=== PATIENT | female | born 1990 | race Caucasian/White ===

== ENCOUNTER 2017-08-03 15:03 | Emergency (ER) | payer BC ==
[~2017-08-03 15:03] MED LIST: ASCO-201 PO; CEFU500T10 PO; CIPR-344 PO; COLC0.6C3; CYCL10TA29 PO; HYDR-4309 PO; HYDR-6016 PO; LOR5/325 PO; LORA-1456 PO; NAPR500T75 PO; NORG1TAB76 PO; OXYC-870 PO; PRED20TA6 PO; PROM-110 PO; ROBC PO
--- NOTE | 2017-08-03 15:07 | ER Report ---
History and Physical Time Seen By MD: 15:06 HPI/ROS CHIEF COMPLAINT: flank pain HISTORY OF PRESENT ILLNESS: PT started two weeks ago with dysuria and frequency. Was using cranberry juice and AZO over the counter for symptoms. NO fevers but has chills. + nausea Developed r flank pain in last day or so that has gotten increasingly worse. PT went to [facility] and sent to emergency room for further evaluation. Pt has not had any kidney stones. Pt has had kidney infection years ago. PT had a urine and urine done at [facility]. Urine was negative. Urine showed bacteria. REVIEW OF SYSTEMS: Constitutional: No fever, + chills. Eyes: No discharge. ENT: No sore throat. Cardiovascular: No chest pain, no palpitations. Respiratory: No cough, no shortness of breath. Gastrointestinal: + abdominal pain, no vomiting, + nausea Genitourinary: No hematuria, + dysuria, + frequency Musculoskeletal: No back pain. Skin: No rashes. Neurological: No headache. Allergies: Coded Allergies: Sulfa (Sulfonamide Antibiotics) (Verified Allergy, Severe, TONGUES SWELLING., 08/03/17) Home Meds Active Scripts Hydrocodone Bit/Acetaminophen (HYDROCODON-ACETAMINOPHEN 5-325) 1 Each Tablet, 1- 2 EACH PO Q4-6H Y for PAIN, #15 TAB Prov:LUNA BENNETT DO 08/03/17 Ondansetron (ZOFRAN ODT) 4 Mg Tab.rapdis, 4 MG PO Q6-8H Y for NAUSEA, #15 TAB.ALAN Prov:LUNA BENNETT DO 08/03/17 Cefuroxime Axetil (CEFUROXIME) 500 Mg Tablet, 500 MG PO BID, #14 TAB Prov:LUNA BENNETT DO 08/03/17 Discontinued Reported Medications Colchicine (Colchicine) 0.6 Mg Capsule 05/21/17 Discontinued Scripts Hydrocodone Bit/Acetaminophen (HYDROCODON-ACETAMINOPHEN 5-325) 1 Each Tablet, 1 EACH PO Q4H Y for PAIN, #12 TAB 0 Refills Prov:SHENA HUTCHINSON MD 05/21/17 Prednisone (PREDNISONE) 20 Mg Tablet, 20 MG PO DIRECTED, #20 TAB 1 Refill take 3 tablets once a day for 5 days, then 2 tablets once a day for 2 days, then 1 tablet once a day for 2 days, then 1/2 tablet once a day for 2 days. Prov:EVANGELINASHENA Sue CABRERA 05/21/17 Past Medical/Surgical History Pmhx: Behcet ds, uti Pshx: non contribuitory Reviewed Nurses Notes: Yes Old Medical Records Reviewed: Yes Hx Smoking: No Smoking Status: Never Smoker Hx Substance Use Disorder: No Hx Alcohol Use: Yes (occ) Constitutional Vital Sign - Last 24 Hours 08/03/17 08/03/17 08/03/17 08/03/17 15:17 15:18 15:19 15:30 Temp 97.5 Pulse ??? Resp 20 B/P (MAP) 150/113 150/113 (125) 138/107 (117) O2 Delivery Room Air 08/03/17 08/03/17 08/03/17 08/03/17 16:00 16:30 16:35 16:50 Pulse ? B/P (MAP) ???/??? (1665) 140/95 (110) 08/03/17 08/03/17 08/03/17 08/03/17 17:00 17:05 17:20 17:30 Pulse ? B/P (MAP) 133/95 (108) 132/97 (109) 08/03/17 08/03/17 08/03/17 17:47 17:48 17:49 B/P (MAP) 130/103 (112) 137/104 (115) 132/93 (106) Physical Exam General Appearance: The patient is alert, has no immediate need for airway protection and no signs of toxicity. Eyes: Pupils equal and round no pallor or injection, EOMI ENT: no pharyngeal erythema or exudates, Mucous membranes are moist, TM are nl b/l Respiratory: There are no retractions, lungs are clear to auscultation. Cardiovascular: Regular rate and rhythm. pulses are equal and symmetrical Gastrointestinal: Abdomen is soft with rlq abdominal pain, R flank pain, no masses, bowel sounds normal, no guarding, no rigidity or rebound Neurological: Cranial nerves II-XII grossly intact, no sensory or motor loss Skin: Warm and dry, no rashes. Musculoskeletal: Neck is supple non tender, no vertebral tenderness Extremities are nontender, non swollen and have full range of motion. DIFFERENTIAL DIAGNOSIS: After history and physical exam differential diagnosis was considered for appendicitis, kidney stone, pyelo, uti Medical Decision Making Data Points Result Diagram: 08/03/17 1535 08/03/17 1535 Laboratory Hematology Test 08/03/17 15:35 08/03/17 16:40 Red Blood Count 4.91 M/uL (4.17-5.56) Mean Corpuscular Volume 89.1 fL (80.0-96.0) Mean Corpuscular Hemoglobin 30.6 pg (26.0-33.0) Mean Corpuscular Hemoglobin Concent 34.4 g/dL (32.0-36.0) Red Cell Distribution Width 13.1 % (11.5-14.5) Mean Platelet Volume 7.5 fL (7.2-11.1) Neutrophils (%) (Auto) 75.9 % (39.4-72.5) Lymphocytes (%) (Auto) 14.4 % (17.6-49.6) Monocytes (%) (Auto) 7.6 % (4.1-12.4) Eosinophils (%) (Auto) 1.3 % (0.4-6.7) Basophils (%) (Auto) 0.8 % (0.3-1.4) Nucleated RBC Relative Count (auto) 0.1 /100WBC Neutrophils # (Auto) 6.7 K/uL (2.0-7.4) Lymphocytes # (Auto) 1.3 K/uL (1.3-3.6) Monocytes # (Auto) 0.7 K/uL (0.3-1.0) Eosinophils # (Auto) 0.1 K/uL (0.0-0.5) Basophils # (Auto) 0.1 K/uL (0.0-0.1) Nucleated RBC Absolute Count (auto) 0.01 K/uL Sodium Level 136 mmol/L (137-145) Potassium Level 3.9 mmol/L (3.5-5.0) Chloride Level 100 mmol/L (98-107) Carbon Dioxide Level 24 mmol/L (22-31) Blood Urea Nitrogen 7 mg/dl (7-18) Creatinine 0.70 mg/dl (0.52-1.04) Glomerular Filtration Rate Calc > 60.0 Random Glucose 85 mg/dl (75-110) Calcium Level 9.0 mg/dl (8.4-10.2) Urine Color Yellow Urine Clarity Clear Urine pH 6.0 pH (4.8-9.5) Urine Specific [place] 1.011 Urine Protein Negative mg/dL (NEGATIVE) Urine Glucose (UA) Negative mg/dL (NEGATIVE) Urine Ketones Negative mg/dL (NEGATIVE) Urine Blood Moderate (NEGATIVE) Urine Nitrite Negative (NEGATIVE) Urine Bilirubin Negative (NEGATIVE) Urine Urobilinogen Negative mg/dL (0.2-1.9) Urine Leukocyte Esterase Large (NEGATIVE) Urine RBC 6 /HPF (0-2/HPF) Urine WBC 46 /HPF (0-5/HPF) Urine Squamous Epithelial Cells Few /LPF (</=FEW) Urine Bacteria Few /HPF (NONE-FEW) Urine Mucus None /HPF (NONE-FEW) Chemistry Test 08/03/17 15:35 08/03/17 16:40 White Blood Count 8.8 k/uL (4.5-11.0) Red Blood Count 4.91 M/uL (4.17-5.56) Hemoglobin 15.0 g/dL (12.0-16.0) Hematocrit 43.8 % (34.0-47.0) Mean Corpuscular Volume 89.1 fL (80.0-96.0) Mean Corpuscular Hemoglobin 30.6 pg (26.0-33.0) Mean Corpuscular Hemoglobin Concent 34.4 g/dL (32.0-36.0) Red Cell Distribution Width 13.1 % (11.5-14.5) Platelet Count 314 K/uL (150-450) Mean Platelet Volume 7.5 fL (7.2-11.1) Neutrophils (%) (Auto) 75.9 % (39.4-72.5) Lymphocytes (%) (Auto) 14.4 % (17.6-49.6) Monocytes (%) (Auto) 7.6 % (4.1-12.4) Eosinophils (%) (Auto) 1.3 % (0.4-6.7) Basophils (%) (Auto) 0.8 % (0.3-1.4) Nucleated RBC Relative Count (auto) 0.1 /100WBC Neutrophils # (Auto) 6.7 K/uL (2.0-7.4) Lymphocytes # (Auto) 1.3 K/uL (1.3-3.6) Monocytes # (Auto) 0.7 K/uL (0.3-1.0) Eosinophils # (Auto) 0.1 K/uL (0.0-0.5) Basophils # (Auto) 0.1 K/uL (0.0-0.1) Nucleated RBC Absolute Count (auto) 0.01 K/uL Glomerular Filtration Rate Calc > 60.0 Calcium Level 9.0 mg/dl (8.4-10.2) Urine Color Yellow Urine Clarity Clear Urine pH 6.0 pH (4.8-9.5) Urine Specific [place] 1.011 Urine Protein Negative mg/dL (NEGATIVE) Urine Glucose (UA) Negative mg/dL (NEGATIVE) Urine Ketones Negative mg/dL (NEGATIVE) Urine Blood Moderate (NEGATIVE) Urine Nitrite Negative (NEGATIVE) Urine Bilirubin Negative (NEGATIVE) Urine Urobilinogen Negative mg/dL (0.2-1.9) Urine Leukocyte Esterase Large (NEGATIVE) Urine RBC 6 /HPF (0-2/HPF) Urine WBC 46 /HPF (0-5/HPF) Urine Squamous Epithelial Cells Few /LPF (</=FEW) Urine Bacteria Few /HPF (NONE-FEW) Urine Mucus None /HPF (NONE-FEW) Urinalysis Test 08/03/17 16:40 Urine Color Yellow Urine Clarity Clear Urine pH 6.0 pH (4.8-9.5) Urine Specific [place] 1.011 Urine Protein Negative mg/dL (NEGATIVE) Urine Glucose (UA) Negative mg/dL (NEGATIVE) Urine Ketones Negative mg/dL (NEGATIVE) Urine Blood Moderate (NEGATIVE) Urine Nitrite Negative (NEGATIVE) Urine Bilirubin Negative (NEGATIVE) Urine Urobilinogen Negative mg/dL (0.2-1.9) Urine Leukocyte Esterase Large (NEGATIVE) Urine RBC 6 /HPF (0-2/HPF) Urine WBC 46 /HPF (0-5/HPF) Urine Squamous Epithelial Cells Few /LPF (</=FEW) Urine Bacteria Few /HPF (NONE-FEW) Urine Mucus None /HPF (NONE-FEW) Microbiology Microbiology Date/Time Source Procedure Growth Status 08/03/17 16:40 Clean Catch Midstream Ur Urine Culture - Preliminary Gram Negative [place] Resulted ED Course/Re-evaluation Clinical Indication for ER IV: IV Access ED Course 08/03/2017 4:47:27 pm Pts pain improved with the morphine but did not go completely away. Nausea improved after zofran "its the first time I feel i can eat for the last 2 days". Pts ct does not show an obstructing stone. Pt does have uti and swelling of urethra due to infection. will start IV abx. As long as pt can take oral abx without vomiting and pain is controlled will d/c Decision to Disposition Date: Aug 03, 2017 Decision to Disposition Time: 17:50 Depart Departure Latest Vital Signs Vital Signs Date Time Temp Pulse Resp B/P (MAP) Pulse Ox O2 Delivery O2 Flow Rate FiO2 08/03/17 17:49 132/93 (106) 08/03/17 17:20 ??? 08/03/17 15:17 97.5 20 Room Air Impression: Primary Impression: UTI (urinary tract infection) Additional Impression: Flank pain, acute Condition: Improved Disposition: HOME OR SELF-CARE New Scripts Hydrocodone Bit/Acetaminophen (HYDROCODON-ACETAMINOPHEN 5-325) 1 Each Tablet 1-2 EACH PO Q4-6H Y for PAIN, #15 TAB Prov: LUNA BENNETT V DO 08/03/17 Ondansetron (ZOFRAN ODT) 4 Mg Tab.rapdis 4 MG PO Q6-8H Y for NAUSEA, #15 TAB.ALAN Prov: LUNA BENNETT V DO 08/03/17 Cefuroxime Axetil (CEFUROXIME) 500 Mg Tablet 500 MG PO BID, #14 TAB Prov: LUNA BENNETT V DO 08/03/17 Patient Instructions: Urinary Tract Infection in Women (ED) Additional Instructions: You have an infection in your urine that is tracking up your right ureter causing you abdominal pain. Ceftin twice a day until finished ( it is an antibiotic) Zofran one every 6 hours as needed for nausea Lortab one every 6 hours as needed for pain (narcotic) We sent your urine off for culture. If the bacteria has any resistance to your current antibiotic we will call you. Return as needed. Problem Qualifiers Primary Impression: UTI (urinary tract infection) Urinary tract infection type: acute pyelonephritis Qualified Codes: N10 - Acute pyelonephritis LUNA BENNETT DO Aug 03, 2017 15:07
[2017-08-03 15:45] LABS: PLATELET COUNT, AUTOMATED 314 K/uL (150-450)
[2017-08-03] MEDS ORDERED: MORPHINE 4 MG/ML SDV IVP ONE ×2 (15:50→16:45)
[2017-08-03] MEDS ORDERED: NS(*) 0.9% 1000 ML BAG 1,000 ML IV ONE (15:50)
[2017-08-03] MEDS ORDERED: ONDANSETRON 4 MG/2 ML VIAL IVP ONE (15:50)
[2017-08-03] MEDS ORDERED: IOPAMIDOL 76% 75 ML INFUS BTL 75 ML ONE (15:54)
--- NOTE | 2017-08-03 16:33 | RADIOLOGY IMAGING REPORT ---
[place] [facility] [place] López : 1990 MR: [id number] V: [id number] EXAM DATE: ORDERING PHYSICIAN: LUNA BENNETT TECHNOLOGIST: Location: [facility] [place] Patient: Marianela López : 1990 Visit/Account:[id number] Date of Sevice: 08/03/2017 EXAMINATION: CT abdomen with IV contrast CT pelvis with IV contrast HISTORY: Right-sided abdominal pain. TECHNIQUE: Spiral scan was through the abdomen and pelvis during injection of nonionic iodinated in travenous contrast. Sagittal and coronal reformatted images are also submitted. One of the following dose optimization techniques was utilized in the performance of this exam: Autom ated exposure control; adjustment of the mA and/or kV according to the patient's size; or use of an i terative reconstruction technique. Specific details can be referenced in the facility's radiology C T exam operational policy. CONTRAST: 75 mL of IV [id number] COMPARISON: None. FINDINGS: Lower chest: Negative. Liver / biliary: Negative. Pancreas: Negative. Spleen: Negative. Adrenal glands: Negative. Kidneys: Prominent urothelial enhancement on the right suspicious for urinary tract infection. No def inite evidence of pyelonephritis. 3 mm nonobstructing stone in the interpolar right kidney. Subcentim eter cyst in the upper pole of the right kidney. Pelvic structures: Mildly distended urinary bladder. Bowel: Normal appendix. No bowel obstruction or bowel wall thickening. Peritoneum / retroperitoneum / mesenteries: Mild inflammatory changes around the right ureter. No edson e fluid or free air. Vessels: Negative. Musculoskeletal / Body wall: Negative. Lymph node assessment: Negative. IMPRESSION: 1. Prominent urothelial enhancement on the right suspicious for urinary tract infection. No evidence of pyelonephritis. 2. 3 mm nonobstructing stone in the right interpolar kidney. 3. Mildly distended urinary bladder. Report Dictated By: Adan Ramirez MD at 08/03/2017 4:21 PM Report E-Signed By: Adan Ramirez MD at 08/03/2017 4:29 PM WSN:[id number]
[2017-08-03] MEDS ORDERED: cefTRIAXone(*) 1 GM VIAL 1 GM in NS(*) 0.9% 100 ML ADDVANT BAG 100 ML IVPB ONE (16:45)
[2017-08-03] MEDS ORDERED: CEFU500T10 PO (17:19)
[2017-08-03] MEDS ORDERED: LOR5/325 PO (17:19)
[2017-08-03] MEDS ORDERED: ONDA4TAB PO (17:19)
[2017-08-03 17:49] VITALS: BP 132/93
== END 2017-08-03 17:45 | disposition home or self-care (01) ==
LOC: ER 15:04
DX: N10 Acute pyelonephritis (principal)
CPT/HCPCS: 74177; 81001; 85025; 87077; 87088; 87186; 96361; 96365; 96375; 96376; 99284; J0696; J2270; J2405; J7030; J7050; Q9967; 82310; 82374; 82435; 82565; 82947; 84132; 84295; 84520